=== PATIENT | female | born 1995 | race Two or more races ===

== ENCOUNTER 2021-11-14 19:51 | Emergency (ER) | payer BC, SELFPAY ==
[2021-11-14 20:35] VITALS: BP 136/78; PULSE 84; RESP 18; TEMP 36.6; O2SAT 99; BMI 34.7
--- NOTE | 2021-11-14 20:38 | ED_ITS ---
HPI - Skin/Abscess/Foreign Bdy General Time Seen by Provider: 20:39 Date Seen: 11/14/21 Chief complaint: Skin/Abscess/Foreign Body Stated complaint: Abscess Time Seen by Provider: 11/14/21 19:56 Source: patient, RN notes reviewed and old records reviewed Mode of arrival: ambulatory Limitations: no limitations History of Present Illness HPI narrative: Patient is seen with the assistance of the agricultural researcher via Internet. Patient was referred from urgent care for a left buttock abscess that she states has been present for about a month but really started hurting overnight. No drainage, no fevers. She does endorse history of getting some pimple type lesions in her buttocks and groin area at times. She does note there is another 1 closer to the rectal area that she feels is there but does not need draining yet. No abdominal pain. Urgent care noted that there was urinary symptoms but patient adamantly denies this at this time. She states she has had no dysuria no frequency no urinary symptoms whatsoever. There were some squamous epithelial cells, possibly a contaminated specimen? In any event, she is adamant that there are no urinary symptoms for her and she has no concerns of UTI. She is not aware of any prior history of MRSA. MD complaint: abscess/boil Related Data Previous Rx's Medication Instructions Recorded doxycycline monohydrate 100 mg 100 mg PO BID #19 caps 11/14/21 capsule Allergies Allergy/AdvReac Type Severity Reaction Status Date / Time No Known Drug Allergies Allergy Verified 11/14/21 18:29 Review of Systems Status of ROS: Reports: 6 or more systems reviewed and unremarkable except as noted in History and below PFSH PFSH Social History Smoking Status: Never smoker Exam Const: Vital Signs, click to edit/add: Vital Signs - 24 hr 11/14/21 20:35 Temperature 97.9 F Pulse Rate [Right Pulse Oximeter] 84 Respiratory Rate 18 Blood Pressure [Ri ght Upper Arm] 136/78 Pulse Oximetry 99 Oxygen Delivery Me thod Room Air Documenting provider has reviewed patient's vital signs: yes Common normals: no apparent distress, oriented x3, no limitations, healthy appearing, alert and well nourished General appearance: cooperative, comfortable and well kempt Nutritional appearance: overweight HENMT: Common normals: normocephalic, head/scalp atraumatic and hearing grossly normal bilaterally Head and scalp: normocephalic and atraumatic Eye: Common normals: conjunctivae normal and no scleral icterus Conjunctiva: conjunctiva(e) normal Resp: Common normals: normal respiratory effort, no retractions, no use of accessory muscles and clear to auscultation bilaterally Auscultation: clear to auscultation bilaterally Cardio: Common normals: regular rate, regular rhythm, S1 normal heart sound, S2 normal heart sound, no gallops, no clicks and no murmurs Rate: regular rate Rhythm: regular rhythm Heart sounds: S1 normal and S2 normal GI: Common normals: Normal to inspection, nondistended, normoactive bowel sounds present, soft to palpation, non-tender, no hepatosplenomegaly and no masses Palpation: soft and no hepatosplenomegaly : Other: Along the left buttock area where it is reflecting into the perineum, there is a pinkish raised area that is tender and fluctuant. You can almost see a little pinpoint pustule developing. This clinically seems to be an abscess. There is no vaginal drainage noted, no perineal lesions, no inguinal adenopathy. Procedure note: Patient consent was obtained for incision and drainage of the abscess. 2 mL of 1% lidocaine with epinephrine was used. This was placed locally, she did tolerate this well. An 11 blade scalpel was then used to make a linear opening and purulent material did drain. A Joaquina was used to explore the small cavity, no internal septations noted, seemed to be superficial without any tracking. Culture was obtained. In the area that this was that, did not feel like any packing would stay for any duration. It was after I had actually done the procedure that she brought up that she had felt another small area closer to the rectum per her report. On the inner ref lection of this buttock about 3 cm or so away from the anus, felt a small little nodular area without any fluctuance or significant tenderness, very superficial. Do not feel that it requires any intervention at this time. Neuro: Common normals: oriented x3 Sensorium/orientation: alert Psych: Appearance: well kempt Course Vital Signs Vital signs: Initial Vital Signs Temperature 97.9 F 11/14/21 20:35 Temperature Source Temporal Artery Scan 11/14/21 20:35 Pulse Rate 84 11/14/21 20:35 Respiratory Rate 18 11/14/21 20:35 Blood Pressure 136/78 11/14/21 20:35 Blood Pressure Mean 97 11/14/21 20:35 Blood Pressure Position Sitting 11/14/21 20:35 Pulse Oximetry 99 11/14/21 20:35 Oxygen Delivery Method 11/14/21 20:35 Vital Signs Temperature 97.9 F 11/14/21 20:35 Pulse Rate 84 11/14/21 20:35 Respiratory Rate 18 11/14/21 20:35 Blood Pressure 136/78 11/14/21 20:35 Pulse Oximetry 99 11/14/21 20:35 Oxygen Delivery Method 11/14/21 20:35 Temperature 97.9 F 11/14/21 20:35 Pulse Rate 84 11/14/21 20:35 Respiratory Rate 18 11/14/21 20:35 Blood Pressure 136/78 11/14/21 20:35 Pulse Oximetry 99 11/14/21 20:35 Oxygen Delivery Method 11/14/21 20:35 Critical Care Time Critical Care Time Critical Care Time: No Discharge Plan Discharge Clinical Impression: Abscess Patient Disposition: Home, Self-Care Condition: Stable Instructions: Abscess (ED), Abscess Incision and Drainage (DC) Additional Instructions: Need to poultry picker prescription for oral antibiotics and continue starting tomorrow morning. Recommend having this rechecked with our general surgeons as they can manage any ongoing needs if you do get recurrent abscesses. If you have concerns that this area is worsening, is becoming increasingly painful or develops fever despite being on the antibiotic, do need to seek re-evaluation. May need to use a pad in your underwear to catch any drainage until this stops. Recommend tub baths twice a day and showers needed to keep the area clean untill this is healed. Activity Level: Activity as Tolerated Prescriptions: New doxycycline monohydrate 100 mg capsule 100 mg PO BID Qty: 19 0RF Follow Up/Referrals: Provider,Not a Local [Primary Care Provider] - Stand Alone Forms: [id number] Info Instructions
[2021-11-14] MEDS: DOXYCYCLINE HYCLATE 100 MG CAPSULE PO (21:56)
== END 2021-11-14 22:14 | disposition home or self-care (01) ==
LOC: ED 21:47
PROVIDERS: Emergency Provider Family Medicine
DX: L02.31 Cutaneous abscess of buttock (principal)
CPT/HCPCS: 87070; 87086; 87186; 99283; A9270